=== PATIENT | female | born 2000 | race Hispanic/Latino ===

== ENCOUNTER 2022-04-13 23:17 | Emergency (ER) | payer OTHER ==
[2022-04-14 01:51] LABS: Urine Blood 2+ (Negative); Urine Glucose Negative (Negative); Urine Protein 1+ (Negative); Urine Specific Gravity 1.025 (1.005-1.030); Urine pH 6.5 (5.0-7.0)
[2022-04-14 02:13] LABS: Urine Specific Gravity/Preg 1.025 (1.005-1.030)
[2022-04-14 02:15] LABS: Urine Bacteria >50 /HPF (<20); Urine RBC <5 /HPF (NONE SEEN); Urine Trichomonas PRESENT (NONE SEEN)
--- NOTE | 2022-04-14 02:41 | ER ---
Nurse's Notes [facility] [place] Name: Annetta Monteiro Age: 21 yrs Sex: Female : 2000 Arrival Date: 04/13/2022 Time: 23:20 Bed 5 Private MD: Diagnosis: UTI/ Urinary tract infection, site not specified;Pelvic and perineal pain-labial ulcers Presentation: 04/14 00:28 Chief complaint: Patient states: "The last couple of days I have been having pain in my vc1 vagina, yesterday it felt like I had a ball on each side, I had my sister look and she said it looks like I have multiple ulcers.". Coronavirus screen: Vaccine status: Patient reports receiving the 2nd dose of the covid vaccine. Moderna At this time, the client does not indicate any symptoms associated with coronavirus-19. Ebola Screen: No symptoms or risks identified at this time. Initial Sepsis Screen: Does the patient meet any 2 criteria? No. Patient's initial sepsis screen is negative. Does the patient have a suspected source of infection? No. Patient's initial sepsis screen is negative. Risk Assessment: Do you want to hurt yourself or someone else? Patient reports no desire to harm self or others. Onset of symptoms was April 11, 2022. 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 - Social history:: Smoking status: Patient denies any tobacco usage or history of. - Family history:: not pertinent. Screenin:31 Abuse screen: Denies threats or abuse. Nutritional screening: No deficits noted. vc1 Tuberculosis screening: No symptoms or risk factors identified. Fall Risk None identified. Assessment: 03:13 General: Appears in no apparent distress. uncomfortable, Behavior is calm, cooperative. lg3 Pain: Complains of pain in groin. Neuro: No deficits noted. Moreno Agitation-Sedation Scale (RASS): 0 - Alert and Calm Level of Consciousness is awake, alert, obeys commands, Oriented to person, place, time, situation. Cardiovascular: No deficits noted. Denies chest pain, shortness of breath, Capillary refill < 3 seconds Clubbing of nail beds is absent JVD is absent Patient's skin is warm and dry. Respiratory: No deficits noted. Airway is patent Trachea midline Respiratory effort is even, unlabored, Respiratory pattern is regular, symmetrical. GI: No deficits noted. No signs and/or symptoms were reported involving the gastrointestinal system. Abdomen is flat, non-distended. : Lesions noted on labia at vaginal opening Reports burning with urination, pain. EENT: No deficits noted. No signs and/or symptoms were reported regarding the EENT system. Derm: No deficits noted. Skin is intact, is healthy with good turgor, Skin is dry, Skin temperature is warm. Musculoskeletal: No deficits noted. No signs and/or symptoms reported regarding the musculoskeletal system. Circulation, motion, and sensation intact. Range of motion: intact in all extremities. Vital Signs: 00:28 BP 124 / 75; Pulse 83; Resp 18; Temp 99.9(O); Pulse Ox 100% on R/A; Weight 70.31 kg; vc1 Height 5 ft. 3 in. (160.02 cm); Pain 0/10; 03:18 BP 122 / 76; Pulse 81; Resp 18; Pulse Ox 100% on R/A; lg3 00:28 Body Mass Index 27.46 (70.31 kg, 160.02 cm) vc1 ED Course: 04/13 23:20 Patient arrived in ED. bp1 04/14 00:30 Triage completed. vc1 00:30 Arm band placed on right wrist. vc1 01:09 Mckay Simental MD is Attending Physician. fran 02:41 Mahendra Bernabe MD is Referral Physician. fran 02:46 Marj Reed RN is Primary Nurse. lg3 03:13 Patient has correct armband on for positive identification. Bed in low position. Call lg3 light in reach. Side rails up X 1. Client placed on continuous cardiac and pulse oximetry monitoring. NIBP monitoring applied. Door closed. Noise minimized. Warm blanket given. Family accompanied patient. 03:13 Assist provider with pelvic exam: Performed by Mckay Simental MD Specimens sent to lab. lg3 Patient did not have IV access during this emergency room visit. 03:17 HSV Culture and Typing Sent. lg3 03:19 Urine Culture Sent. lg3 Administered Medications: 03:12 Drug: Rocephin (cefTRIAXone) 1 grams Route: IM; Site: right gluteus; lg3 03:12 Follow up: Response: No adverse reaction lg3 03:12 Drug: Doxycycline 200 mg Route: PO; lg3 03:12 Follow up: Response: No adverse reaction lg3 03:12 Drug: Zithromax (azithromycin) 1 grams Route: PO; lg3 03:12 Follow up: Response: No adverse reaction lg3 03:12 Drug: Acyclovir 800 mg Route: PO; lg3 03:12 Follow up: Response: No adverse reaction lg3 Medication: 03:13 VIS not applicable for this client. lg3 Outcome: 02:40 Discharge ordered by . fran 03:13 Discharged to home ambulatory. lg3 03:13 Condition: stable 03:13 Discharge instructions given to patient, Instructed on discharge instructions, follow up and referral plans. medication usage, Demonstrated understanding of instructions, follow-up care, medications, Prescriptions given X 4. 03:18 Patient left the ED. lg3 Addendum: 04/17/2022 18:38 Addendum: Culture Results: Positive urine culture. No further action required. Bacteria s s sensitive to prescribed antibiotic. Signatures: Mckay Simental MD MD cha Smirch, Shelby RN RN ss Marj Reed, RAGHAVENDRA RN lg3 Tomasa Johnson Vanessa, RN RN vc1 Corrections: (The following items were deleted from the chart) 04/14 03:14 02:57 Wound Culture+BA.LAB.BRZ drawn and sent. [facility] EDMS
--- NOTE | 2022-04-14 02:41 | EDPHYS ---
Physician Documentation [facility] Name: Annetta Monteiro Age: 21 yrs Sex: Female : 2000 Arrival Date: 04/13/2022 Time: 23:20 Bed 5 Private MD: LARISA Physician Mckay Simental HPI: 04/14 02:35 This 21 yrs old Female presents to ER via Ambulatory with complaints of fran Vaginal Pain. 02:35 The patient presents with urinary symptoms, dysuria, frequency. Onset: The fran symptoms/episode began/occurred 3 day(s) ago. Modifying factors: The symptoms are alleviated by nothing, remaining still. Associated signs and symptoms: Pertinent positives: vaginal discharge. Severity of symptoms: At their worst the symptoms were mild, moderate, in the emergency department the symptoms are unchanged. The patient is sexually active, reportedly has a single partner. The patient has not experienced similar symptoms in the past. 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 - Social history:: Smoking status: Patient denies any tobacco usage or history of. - Family history:: not pertinent. ROS: 02:35 Constitutional: Negative for fever, chills, and weight loss, Eyes: Negative for injury, fran pain, redness, and discharge, ENT: Negative for injury, pain, and discharge, Neck: Negative for injury, pain, and swelling, Cardiovascular: Negative for chest pain, palpitations, and edema, Respiratory: Negative for shortness of breath, cough, wheezing, and pleuritic chest pain, Abdomen/GI: Negative for abdominal pain, nausea, vomiting, diarrhea, and constipation, Back: Negative for injury and pain, MS/Extremity: Negative for injury and deformity, Skin: Negative for injury, rash, and discoloration, Neuro: Negative for headache, weakness, numbness, tingling, and seizure. 02:35 : Positive for pelvic pain, burning with urination, difficulty urinating, vaginal discharge. Exam: 02:35 Constitutional: This is a well developed, well nourished patient who is awake, alert, fran and in no acute distress. Head/Face: Normocephalic, atraumatic. Eyes: Pupils equal round and reactive to light, extra-ocular motions intact. Lids and lashes normal. Conjunctiva and sclera are non-icteric and not injected. Cornea within normal limits. Periorbital areas with no swelling, redness, or edema. ENT: Nares patent. No nasal discharge, no septal abnormalities noted. Tympanic membranes are normal and external auditory canals are clear. Oropharynx with no redness, swelling, or masses, exudates, or evidence of obstruction, uvula midline. Mucous membranes moist. Neck: Trachea midline, no thyromegaly or masses palpated, and no cervical lymphadenopathy. Supple, full range of motion without nuchal rigidity, or vertebral point tenderness. No Meningismus. Chest/axilla: Normal chest wall appearance and motion. Nontender with no deformity. No lesions are appreciated. Cardiovascular: Regular rate and rhythm with a normal S1 and S2. No gallops, murmurs, or rubs. Normal PMI, no JVD. No pulse deficits. Respiratory: Lungs have equal breath sounds bilaterally, clear to auscultation and percussion. No rales, rhonchi or wheezes noted. No increased work of breathing, no retractions or nasal flaring. Abdomen/GI: Soft, non-tender, with normal bowel sounds. No distension or tympany. No guarding or rebound. No evidence of tenderness throughout. Back: No spinal tenderness. No costovertebral tenderness. Full range of motion. Skin: Warm, dry with normal turgor. Normal color with no rashes, no lesions, and no evidence of cellulitis. MS/ Extremity: Pulses equal, no cyanosis. Neurovascular intact. Full, normal range of motion. Neuro: Awake and alert, GCS 15, oriented to person, place, time, and situation. Cranial nerves II-XII grossly intact. Motor strength 5/5 in all extremities. Sensory grossly intact. Cerebellar exam normal. Normal gait. Psych: Awake, alert, with orientation to person, place and time. Behavior, mood, and affect are within normal limits. 02:35 : Pelvic Exam: External exam: herpes lesions noted, reveals ulcerations on external genitalia, the nurse was present for the exam. Vital Signs: 00:28 BP 124 / 75; Pulse 83; Resp 18; Temp 99.9(O); Pulse Ox 100% on R/A; Weight 70.31 kg; vc1 Height 5 ft. 3 in. (160.02 cm); Pain 0/10; 03:18 BP 122 / 76; Pulse 81; Resp 18; Pulse Ox 100% on R/A; lg3 00:28 Body Mass Index 27.46 (70.31 kg, 160.02 cm) vc1 MDM: 01:09 Patient medically screened. fran 02:38 Differential diagnosis: pelvic inflammatory disease, urinary tract infection. Data fran reviewed: vital signs, nurses notes, lab test result(s), urinalysis, bacteruria, pyuria. 04/14 01:51 Order name: Urine Microscopic Only; Complete Time: 02:20 lp1 04/14 01:52 Order name: Urine Dipstick-Ancillary; Complete Time: 02:20 EDMS 04/14 01:52 Order name: Urine --Ancillary (enter results); Complete Time: 02:20 mw2 04/14 02:18 Order name: Urine Culture [facility] 04/14 03:14 Order name: HSV Culture and Typing [facility] 04/14 01:11 Order name: Urine Dipstick-Ancillary (obtain specimen); Complete Time: 01:52 fran 04/14 01:11 Order name: Urine Test (obtain specimen); Complete Time: 01:52 fran Administered Medications: 03:12 Drug: Rocephin (cefTRIAXone) 1 grams Route: IM; Site: right gluteus; lg3 03:12 Follow up: Response: No adverse reaction lg3 03:12 Drug: Doxycycline 200 mg Route: PO; lg3 03:12 Follow up: Response: No adverse reaction lg3 03:12 Drug: Zithromax (azithromycin) 1 grams Route: PO; lg3 03:12 Follow up: Response: No adverse reaction lg3 03:12 Drug: Acyclovir 800 mg Route: PO; lg3 03:12 Follow up: Response: No adverse reaction lg3 Disposition Summary: 04/14/22 02:40 Discharge Ordered Location: Home fran Problem: new fran Symptoms: have improved fran Condition: Stable fran Diagnosis - UTI/ Urinary tract infection, site not specified fran - Pelvic and perineal pain - labial ulcers fran Followup: fran - With: Private Physician - When: 2 - 3 days - Reason: Recheck today's complaints, Continuance of care, Re-evaluation by your physician Followup: fran - With: Mahendra Bernabe MD - When: 2 - 3 days - Reason: Recheck today's complaints, Continuance of care, Re-evaluation by your physician Discharge Instructions: - Discharge Summary Sheet fran - Dysuria fran - Pelvic Pain, Female fran - Urinary Tract Infection, Adult fran - Pelvic Pain, Female, [id number] fran - Urinary Tract Infection, Adult, [id number] Forms: - Medication Reconciliation Form [facility] - Thank You Letter [facility] - Antibiotic Education [facility] - Prescription Opioid Use [facility] Prescriptions: - Valtrex 1 gram Oral tablet - take 1 tablet by ORAL route 3 times per day; 21 tablet; Refills: 0, Product [facility] Selection Permitted - Cipro 250 mg Oral Tablet - take 2 tablets by ORAL route every 12 hours; 20 tablet; Refills: 0, Product [facility] Selection Permitted - Doxycycline Hyclate 100 mg Oral Tablet - take 1 tablet by ORAL route every 12 hours; 20 tablet; Refills: 0, Product [facility] Selection Permitted - Tylenol-Codeine #3 300 mg-30 mg Oral - take 2 tablet by ORAL route every 6 hours; 20 tablet; Refills: 0, Product [facility] Selection Permitted Signatures: Dispatcher [employer] Mckay Cruz MD MD cha Gibson, Lacie, RN RN lg3 Michaelle Monsalve RN RN vc1 Cristina Jorge, PA PA sb3 Corrections: (The following items were deleted from the chart) 03:14 01:12 Wound Culture+BA.LAB.BRZ ordered. AMIRA COLLIER
[2022-04-14] MEDS ORDERED: ACYCLOVIR 400 MG TABLET ONE (03:07)
[2022-04-14] MEDS ORDERED: AZITHROMYCIN 250 MG TAB ONE (03:07)
[2022-04-14] MEDS ORDERED: CEFTRIAXONE 1000 MG/VIAL ONE (03:08)
[2022-04-14] MEDS ORDERED: DOXYCYCLINE 100 MG CAP PO ONE (03:08)
[2022-04-14 04:06] VITALS: TEMP 99.9; O2SAT 100
[2022-04-14 04:08] VITALS: BP 122/76
== END 2022-04-14 03:18 | disposition home or self-care (01) ==
LOC: ER 23:17
DX: N39.0 Urinary tract infection, site not specified (principal); N76.6 Ulceration of vulva
CPT/HCPCS: 81003; 81015; 81025; 87077; 87086; 87088; 87186; 87255; 96372; 99284